=== PATIENT | female | born 1960 | race Caucasian/White ===

== ENCOUNTER 2023-04-05 11:48 | Emergency (ER) | payer OTHER ==
[2023-04-05 12:00] VITALS: TEMP 98
[2023-04-05] MEDS ORDERED: DIPH,PERTUS(ACELL)TETVAC-LF 0.5 ML VIAL IM ONE (12:49)
[2023-04-05] MEDS ORDERED: SODIUM CHLORIDE 0.9% 1,000 ML IV ONE (12:51)
--- NOTE | 2023-04-05 12:51 | ED ---
General Adult HPI - General Chief complaint: Altered Mental Status Stated complaint: Siezure Time Seen by Provider: 04/05/23 12:10 Source: patient, EMS, RN notes reviewed, old records reviewed Mode of arrival: ambulatory - History of Present Illness Initial comments: This is a 62-year-old female presents emergency Department stating that she felt shaky today and fell to the ground. Patient states she did not hit her head or neck today. Patient states on Tuesday she tripped twice and felt to times. Patient states she did strike her head but did not lose consciousness but she is complaining some right-sided neck pain. Patient denies any extremity pain. Patient's any back pain chest pain difficulty breathing shortness of breath per patient denies abdominal pain. Patient denies any leg pain or hip pain. Patient states she is an alcoholic. Patient states she hasn't drink today at breakfast. Patient's not sure if the falling is related to her drinking or not. - Related Data Home Medications Medication Instructions Recorded Confirmed Acamprosate Calcium [Campral] 333 mg PO TID 04/05/23 04/05/23 DULoxetine HCL [Cymbalta] 30 mg PO DAILY 04/05/23 04/05/23 Gabapentin [Neurontin] 300 mg PO TID 04/05/23 04/05/23 Levothyroxine Sodium [Synthroid] 25 mcg PO DAILY 04/05/23 04/05/23 amLODIPine [Norvasc] 5 mg PO DAILY 04/05/23 04/05/23 lamoTRIgine [LaMICtal Xr] 50 mg PO DAILY 04/05/23 04/05/23 Allergies Allergy/AdvReac Type Severity Reaction Status Date / Time No Known Allergies Allergy Verified 04/05/23 12:01 Review of Systems ROS Statement: Those systems with pertinent positive or pertinent negative responses have been documented in the HPI. ROS Other: All systems not noted in ROS Statement are negative. Past Medical History Past Medical History: Unable to Obtain History of Any Multi-Drug Resistant Organisms: None Reported Past Surgical History: Unable to Obtain Past Psychological History: Anxiety, PTSD Smoking Status: Former smoker Past Alcohol Use History: Daily Past Drug Use History: None Reported General Exam - General Exam Comments Initial Comments: GENERAL: Patient is well-developed and well-nourished. Patient is nontoxic and well-h ydrated and is in no acute distress. ENT: Neck is soft and supple. No significant lymphadenopathy is noted. Oropharynx is clear. Moist mucous membranes. Neck has full range of motion without elic iting any pain. EYES: The sclera were anicteric and conjunctiva were pink and moist. Extraocular movements were intact and pupils were equal round and reactive to light. Eyelids were unremarkable. PULMONARY: Unlabored respirations. Good breath sounds bilaterally. No audible rales rhonchi or wheezing was noted. CARDIOVASCULAR: There is a regular rate and rhythm without any murmurs gallops or rubs. ABDOMEN: Soft and nontender with normal bowel sounds. SKIN: Patient has multiple abrasions on her leg and face and forehead. Patient states that this all occurred on Tuesday. No new abrasions or cuts today. NEUROLOGIC: Patient is alert and oriented x3. Cranial nerves II through XII are grossly intact. Motor and sensory are also intact. Normal speech, volume and content. Symmetrical smile. MUSCULOSKELETAL: Normal extremities with adequate strength and full range of motion. No lower extremity swelling or edema. No calf tenderness. LYMPHATICS: No significant lymphadenopathy is noted PSYCHIATRIC: Normal psychiatric evaluation. Course Vital Signs 04/05/23 04/05/23 04/05/23 11:57 12:01 14:11 Temperature 98.0 F Pulse Rate 96 93 93 Respiratory 18 16 16 Rate Blood Pressure 131/78 133/78 133/68 O2 Sat by Pulse 100 95 99 Oximetry 04/05/23 14:51 Temperature Pulse Rate 98 Respiratory 18 Rate Blood Pressure 135/70 O2 Sat by Pulse 99 Oximetry Medical Decision Making - Medical Decision Making EKG was interpreted by myself. EKG shows an ectopic atrial rhythm at 88 bpm ME interval is on a nitro's is 83 QT interval 393 QTC is 439. Patient's EKG shows no ST segment elevation or depression. Was pt. sent in by a medical professional or institution (, PA, PATHOLOGY TECHNICIAN, urgent care, hospital, or [facility]...) When possible be specific @ -No Did you speak to anyone other than the patient for history (EMS, parent, family, police, friend...)? What history was obtained from this source @ -No Did you review nursing and triage notes (agree or disagree)? Why? @ -I reviewed and agree with nursing and triage notes Were old charts reviewed (outside hosp., previous admission, EMS record, old E KG, old radiological studies, urgent care reports/EKG's, [facility] records)? Report findings @ -No Differential Diagnosis (chest pain, altered mental status, abdominal pain women, abdominal pain men, vaginal bleeding, weakness, fever, dyspnea, syncope, heada nabeel, dizziness, GI bleed, back pain, seizure, CVA, palpatations, mental health, musculoskeletal)? @ -Differential Headache: Migraine, tension, cluster, carbon monoxide, central venous thrombosis, pension karma temporal arteritis, acute closure glaucoma, intercranial hemorrhage, mastoiditis, sinusitis, head injury, this is not meant to be an all-inclusive list. EKG interpreted by me (3pts min.). @ -As above X-rays interpreted by me (1pt min.). @ -Chest x-ray shows no acute abnormality CT interpreted by me (1pt min.). @ -CT of the brain shows a subdural on the right with about 1 cm of shift in the midline. Patient's CT of the facial bones shows no acute abnormality. CT of the C-spine shows no acute abnormality. U/S interpreted by me (1pt. min.). @ -None done What testing was considered but not performed or refused? (CT, X-rays, U/S, labs)? Why? @ -None What meds were considered but not given or refused? Why? @ -None Did you discuss the management of the patient with other professionals (professionals i.e. , PA, PATHOLOGY TECHNICIAN, lab, RT, psych nurse, social and human services assistant, rn sane, teacher, chief credit officer, returned case inspector)? Give summary @ -Spoke with [facility] and they accepted the transfer of this patient Was smoking cessation discussed for >3mins.? @ -No Was critical care preformed (if so, how long)? @ -35 minutes Were there social determinants of health that impacted care today? How? (Home lessness, low income, unemployed, alcoholism, drug addiction, transportation, low edu. Level, literacy, decrease access to med. care, penitentiary, rehab)? @ -No Was there de-escalation of care discussed even if they declined (Discuss DNR or withdrawal of care, Hospice)? DNR status @ -No What co-morbidities impacted this encounter? (DM, HTN, Smoking, COPD, CAD, Cancer, CVA, ARF, Chemo, Hep., AIDS, mental health diagnosis, sleep apnea, morbid obesity)? @ -None Was patient admitted / discharged? Hospital course, mention meds given and route, prescriptions, significant lab abnormalities, going to OR and other pertinent info. @ -Patient came in complaining of multiple falls also she admitted she is an alcoholic. Patient states today she had the shakes fell again doesn't think she hit her head. Patient states she does not feeling range complaining of a headache. CAT scan was done and that shows subdural with midline shift of 1 cm. Undiagnosed new problem with uncertain prognosis? @ -No Drug Therapy requiring intensive monitoring for toxicity (Heparin, Nitro, Insulin, Cardizem)? @ -No Were any procedures done? @ -No Diagnosis/symptom? @ -Subdural hematoma Acute, or Chronic, or Acute on Chronic? @ -Acute Uncomplicated (without systemic symptoms) or Complicated (systemic symptoms)? @ -Complicated Side effects of treatment? @ -No Exacerbation, Progression, or Severe Exacerbation? @ -No Poses a threat to life or bodily function? How? (Chest pain, [place], [place], pneumonia, PE, COPD, DKA, ARF, appy, cholecystitis, CVA, Diverticulitis, Homicidal, Suicidal, threat to staff... and all critical care pts) @ -Yes this can lead to increased pressure and lead to herniation and - Lab Data Result diagrams: 04/05/23 12:56 04/05/23 12:56 Lab Results 04/05/23 04/05/23 Range/Units 12:56 12:56 WBC 4.9 (3.8-10.6) k/uL RBC 4.00 (3.80-5.40) m/uL Hgb 14.7 (11.4-16.0) gm/dL Hct 43.9 (34.0-46.0) % MCV 109.8 H (80.0-100.0) fL MCH 36.8 H (25.0-35.0) pg MCHC 33.5 (31.0-37.0) g/dL RDW 13.1 (11.5-15.5) % Plt Count 217 (150-450) k/uL MPV 8.2 Neutrophils % 65 % Lymphocytes % 25 % Monocytes % 6 % Eosinophils % 2 % Basophils % 0 % Neutrophils # 3.2 (1.3-7.7) k/uL Lymphocytes # 1.2 (1.0-4.8) k/uL Monocytes # 0.3 (0-1.0) k/uL Eosinophils # 0.1 (0-0.7) k/uL Basophils # 0.0 (0-0.2) k/uL Manual Slide Review Performed Macrocytosis Marked A Sodium 138 (137-145) mmol/L Potassium 3.4 L (3.5-5.1) mmol/L Chloride 103 (98-107) mmol/L Carbon Dioxide 14 L (22-30) mmol/L Anion Gap 21 mmol/L BUN 7 (7-17) mg/dL Creatinine 0.58 (0.52-1.04) mg/dL Est GFR (CKD-EPI)AfAm >90 (>60 ml/min/1.73 sqM) Est GFR (CKD-EPI)NonAf >90 (>60 ml/min/1.73 sqM) Glucose 94 (74-99) mg/dL Calcium 9.3 (8.4-10.2) mg/dL Magnesium 1.7 (1.6-2.3) mg/dL Total Bilirubin 1.1 (0.2-1.3) mg/dL AST 49 H (14-36) U/L ALT 21 (4-34) U/L Alkaline Phosphatase 122 (38-126) U/L Total Protein 7.1 (6.3-8.2) g/dL Albumin 4.4 (3.5-5.0) g/dL Serum Alcohol 24 mg/dL Critical Care Time Critical Care Time: Yes Total Critical Care Time: 35 Disposition Clinical Impression: Subdural hematoma Disposition: OTHER INSTITUTION NOT DEFINED Referrals: None,Stated [Primary Care Provider] - 1-2 days - Out of Hospital Transfer - Req. Specs Out of Hospital Transfer - Requested Specifics: Other Emergency Center ([facility])
[2023-04-05 13:07] LABS: Basophils % (A) 0 %; Eosinophils # (A) 0.1 k/uL (0-0.7); Eosinophils % (A) 2 %; HCT 43.9 % (34.0-46.0); HGB 14.7 gm/dL (11.4-16.0); Lymphocytes # (A) 1.2 k/uL (1.0-4.8); Lymphocytes % (A) 25 %; MCH 36.8 pg (25.0-35.0); MCHC 33.5 g/dL (31.0-37.0); MCV 109.8 fL (80.0-100.0); Macrocytosis Marked; Mean Platelet Volume 8.2; Monocytes # (A) 0.3 k/uL (0-1.0); Monocytes % (A) 6 %; Neutrophils # (A) 3.2 k/uL (1.3-7.7); Neutrophils % (A) 65 %; Platelet Count 217 k/uL (150-450); RDW 13.1 % (11.5-15.5); WBC 4.9 k/uL (3.8-10.6)
[2023-04-05 13:38] LABS: ALT 21 U/L (4-34); AST 49 U/L (14-36); African American GFR (CKD) >90 (>60 ml/min/1.73 sqM); Albumin 4.4 g/dL (3.5-5.0); Alcohol 24 mg/dL; Alkaline Phosphatase 122 U/L (38-126); Anion Gap 21 mmol/L; Blood Urea Nitrogen 7 mg/dL (7-17); Calcium 9.3 mg/dL (8.4-10.2); Carbon Dioxide 14 mmol/L (22-30); Chloride 103 mmol/L (98-107); Glucose 94 mg/dL (74-99); Magnesium 1.7 mg/dL (1.6-2.3); Non-African American GFR(CKD) >90 (>60 ml/min/1.73 sqM); Potassium 3.4 mmol/L (3.5-5.1); Sodium 138 mmol/L (137-145); Total Bilirubin 1.1 mg/dL (0.2-1.3); Total Protein 7.1 g/dL (6.3-8.2)
[2023-04-05] MEDS ORDERED: SALINE IV ONE (14:14)
[2023-04-05] MEDS ORDERED: MANNITOL 20% IV ONE (14:14)
--- NOTE | 2023-04-05 14:41 | CT ---
EXAMINATION TYPE: CT brain cspine wo con, CT facial bones wo con DATE OF EXAM: 04/05/2023 COMPARISON: None HISTORY: 62-year-old female with pain after trauma, Series of falls this week. Facial bruising and sw elling. CT DLP: 1237.8 mGycm Automated exposure control for dose reduction was used. Technique: Examination of the head was done in axial plane without intravenous contrast. Coronal and sagittal reconstructions performed. CT of the cervical spine was obtained in axial plane without intravenous injection of contrast mater ial. Coronal and sagittal reformatted images were obtained from the axial views for evaluation of f ractures, spinal alignment and canal. CT of the facial bones without contrast. Coronal and sagittal reconstructions performed. FINDINGS: Head: There is a subdural hematoma along the right lateral convexity with both acute hyperdense and chronic low density components. Subdural hematoma measures up to 1.3 cm thick. The acute component measures up to 6 mm thick. There is mass effect onto the underlying cerebral cortex with gyral crowding and resultant 1 cm of le ftward midline shift. Slight asymmetric flattening of the right lateral ventricle. No herniation or h ydrocephalus is seen. No calvarial fracture. Mastoid air cells well pneumatized. The facial bones: Suspect old healed fracture of the left orbital floor. Globes appear intact. Leftward nasal septal de viation. Trace mucosal thickening posterior left maxillary sinus. Some degenerative change of the josé luis ateral TMJs. Mild bruising along the left premaxillary region and also the left frontal region. The m andible, zygomatic arches, pterygoid plates appear intact. No acute facial bone or nasal bone fractur e is seen. Cervical spine: No craniocervical junction abnormality, predental space widening, or prevertebral soft tissue swellin g. Moderate spondylotic change particularly from C5 through C7 levels. No acute fracture or malalignment of the cervical spine. Partially visualized bilateral breast implants. 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 Sagittal and coronal reformatted images confirm above findings. COMBINED IMPRESSION: Brain: 1. Acute on chronic subdural hematoma on the right measuring up to 1.3 cm thick. The acute component measures 6 mm thick. 2. Mass effect results in 1 cm of leftward midline shift. No herniation or hydrocephalus. Critical findings called to Dr. Tim in the ER at 2:27 PM. Facial bones: 3. Mild anterior left frontal scalp contusion. Mild bruising along the left premaxillary region. 4. No underlying acute facial bone fracture seen. 5. Suspect old fracture of the left orbital floor. Bilateral TMJ OA. Leftward nasal septal deviation. Cervical spine: 6. Moderate spondylotic change especially C5-C7 levels. 7. No acute fracture or malalignment of the cervical spine.
[2023-04-05 14:53] VITALS: BP 135/70; PULSE 98; RESP 18
== END 2023-04-05 15:03 | disposition other institution (70) ==
LOC: EC 11:48
DX: S00.03XA Contusion of scalp, initial encounter (principal); F41.9 Anxiety disorder, unspecified; Z87.891 Personal history of nicotine dependence; Z79.899 Other long term (current) drug therapy; Z23 Encounter for immunization; W01.0XXA Fall on same level from slipping, tripping and stumbling without subsequent striking against object, initial encounter
CPT/HCPCS: 36415; 70450; 70486; 72125; 80053; 80320; 83735; 85025; 90471; 90715; 93005; 96361; 96374; 99291